=== PATIENT | female | born 1935 | race Caucasian/White ===

== ENCOUNTER 2024-08-09 06:46 | Outpatient (REF) | payer MEDICARE, SELFPAY ==
--- OUTSIDE RECORDS SUMMARY | 2024-08-09 06:52 | XMS_ITS | Encounter Summary ---
Author Organization [facility] Address [address] [place] [id number] Care Team Providers Care Slab Inspector Name Role Phone Unavailable Primary Care Provider Unavailabl e Encounter Details Date Type Department Care Team (Late st Contact Info) Description 05/17/2020 Lab Requisition [facility] Pathology & [place] [address] Outr Resulting Lab, Provider Social History Tobacco Use Types Packs/Day Years Used Date Smoking Tobacco: Never Assessed Interpersonal Safety Answer Date Record ed Physically Hurt Never 05/18/2020 Verbally Threaten Not on file 05/18/2020 Comments Unknown Sex and Gender Information Value Date Recorded Sex Assigned at Not on file Legal Sex Female 9:45 EST Gender Identity Not on file Sexual Orientation Not on file documented as of this encounter Plan of Treatment Not on file documented as of this encounter Procedures Procedure Name Priority Date/Time Associated Diagnosis Comments LYME AB Routine 05/16/2020 12:16 EST documented in this encounter Results * LYME AB (05/16/2020 12:16 EST) Lyme Ab Negative Negative 05/18/2020 10:07 EST [facility] Comment:New 3rd generation a ssay in use 09/15/2019 Blood VENOUS BLOOD / Unknown 05/16/2020 12:16 EST 05/17/2020 15:54 EST us Provider Outr Resulting Lab IMMUNOLOGY AND SEROL OGY ORDERABLES Final Result [facility] [address] [place] [address] documented in this encounter Visit Diagnoses Not on filedocumented in this encounter
--- OUTSIDE RECORDS SUMMARY | 2024-08-09 06:52 | XMS_ITS | Referral Summary ---
Author Organization [facility] Address [address] [place] [id number] Care Team Providers Care Structural Technician Name Role Phone Unavailable Primary Care Provider Unavailabl e Social History Tobacco Use Types Packs/Day Years Used Date Smoking Tobacco: Never Assessed Interpersonal Safety Answer Date Record ed Physically Hurt Never 05/18/2020 Verbally Threaten Not on file 05/18/2020 Comments Unknown Sex and Gender Information Value Date Recorded Sex Assigned at Not on file Legal Sex Female 9:45 EST Gender Identity Not on file Sexual Orientation Not on file Plan of Treatment Not on file Insurance [employer]
--- OUTSIDE RECORDS SUMMARY | 2024-08-09 06:52 | XMS_ITS | Clinical Summary ---
Author Organization [facility] [place] [address] Care Team Providers Care Recruiting Intern Name Role Phone Luma Ruiz JUICE Primary Care Provider [phone] Medications Medication Sig Dispensed Refills Start Date End Date Status amLODIPine (Norvasc) 5 mg tablet Take 1 tablet by mouth daily. 08/01/2024 Active FLUoxetine (PROzac) 40 mg capsule Take 1 capsule by mouth daily. 08/01/2024 Active hydroCHLOROthiazide 12.5 mg tablet Take 1 tablet by mouth daily. 08/01/2024 Active losartan (Cozaar) 100 mg tablet Take 1 tablet by mouth daily. 08/01/2024 Active rOPINIRole (Requip) 4 mg tablet Take 1 tablet by mouth nightly. 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 07/28/2024 Encounters Date Type Department Care Team Description 07/28/2024 6:14 PM EDT - 07/31/2024 10:32 AM EDT Hospital Encounter Heart and Vascular Unit Level 4 [place] [address] Zachariah Aparicio MD Intracranial hemorrhage (Primary Dx); High risk medications (not anticoagulants) long-term use Discharge Disposition: Assisted Facility 07/28/2024 5:43 PM EDT - 07/28/2024 6:13 PM EDT Hospital [place] [address] Zachariah Aparicio MD Discharge Disposition: Home 07/28/2024 3:45 PM EDT Ancillary Procedure Radiology Library at [facility] [place] [address] Dejuan Harvey MD 07/28/2024 2:55 PM EDT Telehealth notes only TeleHealth [facility] [place] [phone] Telehealth, Neurology 07/28/2024 Telephone Neurology at [facility] [place] [phone] Zachariah Aparicio MD from Last 3 Months Social History Tobacco Use Types Packs/Day Years Used Date Smoking Tobacco: Never Assessed [facility] Utilities Answer Date Recorded In the past 12 months has th e electric, gas, oil, or water company threatened to shut off services in your home? No 07/29/2024 Hunger Vital Sign Answer Date Recorded Within the past 12 months, y ou worried that your food would run out before you got the money to buy more. Never true 07/30/19 25 Within the past 12 months, t he food you bought just didn't last and you didn't have money to get more. Never true 07/29/2024 PRAPARE - Transportation Answer Date Re corded In the past 12 months, has l ack of transportation kept you from medical appointments or from getting medications? No 07/07 In the past 12 months, has l ack of transportation kept you from meetings, work, or from getting things needed for daily living? No 07/29/2024 Housing Stability Vital Sign Answer Jose e Recorded In the last 12 months, was t here a time when you were not able to pay the mortgage or rent on time? No 07/29/2024 In the past 12 months, how m any times have you moved where you were living? 0 07/29/2024 At any time in the past 12 m [facility], were you homeless or living in a long-term (including now)? No 07/29/2024 Sex and Gender Information Value Date Recorded Sex Assigned at Not on file Gender Identity Not on file Sexual Orientation Not on file Last Filed Vital Signs Vital Sign Reading Time Taken Comments Blood Pressure 115/68 07/31/2024 8:02 AM EDT Pulse 83 07/30/2024 4:00 PM EDT Temperature 36.6 ??C (97.9 ??F) 07/31/2024 8:02 AM ED T Respiratory Rate 18 07/31/2024 8:02 AM EDT Oxygen Saturation 93% 07/31/2024 8:02 AM EDT Inhaled Oxygen Concentration - - Weight 83 kg (182 lb 15.7 oz) 07/31/2024 4:35 AM EDT Height 149.9 cm (4' 11 ) 07/28/2024 8:00 PM EDT Body Mass Index 36.96 07/28/2024 8:00 PM EDT Plan of Treatment Health Maintenance Due Date Last Done Comments Tetanus/Diphtheria/Pertussis Vaccines (1 - Tdap) 02[birth year]28/1954 Pneumoccocal Vaccine: 50+ (1 of 1 - PCV) 1987 Zoster vaccine (1 of 2) 1987 Advance Directive 02/28/1992 Bone Density Scan 2002 RSV Vaccine (1 - 1-dose 75+ series) 02/28/2012 Covid-19 Vaccine (4 - 2023- season) 2023 08/19/2022, 02/14/2022, 08/21/2021 Influenza (Flu) vaccine (1 o f 1 - Influenza standard series) 12/07/2023 Procedures Procedure Name Priority Date/Time Associated Diagnosis Comments FERRITIN Routine 07/30/2024 4:43 PM EDT IRON AND TIBC Routine 07/30/2024 4:43 PM EDT SCAN DOC: TELEMETRY STRIPS 07/30/2024 10:18 AM EDT HEPATIC FUNCTION PANEL Routine 07/30/2024 12:55 AM EDT PHOSPHORUS Routine 07/30/2024 12:55 AM EDT MAGNESIUM Routine 07/30/2024 12:55 AM EDT BASIC METABOLIC PANEL Routine 07/30/2024 12:55 AM EDT CBC (WITH DIFF) Routine 07/30/2024 12:55 AM EDT SCAN DOC: TELEMETRY STRIPS 07/29/2024 10:04 PM EDT QUANTIFERON-TB GOLD Routine 07/29/2024 1 :25 PM EDT EKG 12-LEAD Routine 07/29/2024 11:38 AM EDT High risk medications (not anticoagulants) long-term use SCAN DOC: TELEMETRY STRIPS 07/29/2024 9:17 AM EDT ABORH RECHECK KELLY 07/29/2024 12:14 AM EDT TRIGLYCERIDE Routine 07/29/2024 12:14 AM EDT HDL/CHOL PROFILE Routine 07/29/2024 12:1 4 AM EDT LDL CHOLESTEROL, DIRECT Routine 07/29/2024 12:14 AM EDT HEMOGLOBIN A1C Routine 07/29/2024 12:14 AM EDT HEPATIC FUNCTION PANEL Routine 07/29/2024 12:14 AM EDT PHOSPHORUS Routine 07/29/2024 12:14 AM EDT MAGNESIUM Routine 07/29/2024 12:14 AM EDT BASIC METABOLIC PANEL Routine 07/29/2024 12:14 AM EDT CBC (WITH DIFF) Routine 07/29/2024 12:14 AM EDT MRI BRAIN WWO CONTRAST (GENERIC) Routine 07/28/2024 10:42 PM EDT TYPE AND SCREEN ([facility]) STAT 07/28/2024 8:36 PM EDT URINALYSIS MICROSCOPIC WITH REFLEX TO CULTURE Routine 07/28/2024 8:36 PM EDT URINALYSIS WITH REFLEX CULTURE Routine 07/28/2024 8:36 PM EDT FILM LIBRARY STORAGE ONLY CT HEAD Routine 07/28/2024 3:43 PM EDT SCAN DOC: TELEMETRY STRIPS 07/28/2024 6:48 AM EDT from Last 3 Months Results * (ABNORMAL) Iron and TIBC (07/30/2024 4:43 PM EDT) Iron 41 30 - 150 mcg/dL 07/30/2024 5:28 PM EDT [facility] TIBC 239(L) 250 - 450 mcg/dL 07/30/2024 5:28 PM EDT [facility] Iron Saturation 17(L) 20 - 50 % 5:28 PM EDT [facility] Blood VENOUS BLOOD SPECIMEN / Unknown Venipuncture / Unknown 07/30/2024 4:43 PM EDT 07/30/2024 4:52 PM EDT Hedy Ley RING BARKER OPERATOR CHEMISTRY ORDERABLE S [facility] [place] [address] * Ferritin (07/30/2024 4:43 PM EDT) Ferritin 204 11 - 328 ng/ml 07/30/2024 5:40 PM EDT [facility] Blood VENOUS BLOOD SPECIMEN / Unknown Venipuncture / Unknown 07/30/2024 4:43 PM EDT 07/30/2024 4:52 PM EDT Hedy Ley RING BARKER OPERATOR CHEMISTRY ORDERABLE S [facility] [place] [address] * Scan Doc: Telemetry Strips (07/30/2024 10:18 AM EDT) Only the most recent of4 resultswithin the time period is included. Narrative 07/30/2024 10:18 AM EDT Ordered by an unspecified provider. Scanning Provider MEDIA MGR SCAN EXT O RDR/RSLT * (ABNORMAL) CBC (with Diff) (07/30/2024 12:55 AM EDT) Only the most recent of2 resultswithin the time period is included. White Blood Cell 10.15(H) 4.00 - 9.50 x10(3)/mc L 07/30/2024 1:08 AM EDT [facility] Red Blood Cell 4.63 4.00 - 5.21 x10(6)/mc L 07/30/2024 1:08 AM EDT [facility] Hemoglobin 14.2 11.7 - 15.5 g/dL 07/30/2024 1:08 AM EDT [facility] Hematocrit 41.8 35.7 - 45.8 % 07/30/2024 1:08 AM EDT [facility] Mean Cell Volume 90.3 82.6 - 94.4 fL 07/30/2024 1:08 AM EDT [facility] Mean Cell Hemoglobin 30.7 27.1 - 32.0 pg 07/30/2024 1:08 AM EDT [facility] Mean Cell Hemoglobin Concentration 34.0 31.7 - 35.0 g/dL 07/30/2024 1:08 AM EDT [facility] Platelet 210 145 - 357 x10(3)/mc L 07/30/2024 1:08 AM EDT [facility] Mean Platelet Volume 9.7 7.6 - 12.9 fL 07/30/2024 1:08 AM EDT [facility] RDW Standard Deviation 40.4 37.0 - 46.0 fL 07/30/2024 1:08 AM [facility] RDW coefficient of variation 12.3 11.5 - 14.1 % 07/30/2024 1:08 AM [facility] NRBC% auto 0.0 % 07/30/2024 1:08 AM [facility] NRBC Absolute <0.01 <0.01 x10(3)/mc L 07/30/2024 1:08 AM [facility] Neutrophil % 72.2 % 07/30/2024 1:08 AM [facility] Neutrophil Absolute (ANC) - Automated 7.33(H) 1.70 - 6.10 x10(3)/mc L 07/30/2024 1:08 AM [facility] Lymph % 16.9 % 07/30/2024 1:08 AM [facility] Lymph Absolute 1.72 0.90 - 3.20 x10(3)/mc L 07/30/2024 1:08 AM [facility] Monocyte % 8.4 % 07/30/2024 1:08 AM [facility] Monocyte Absolute 0.85 0.30 - 0.90 x10(3)/mc L 07/30/2024 1:08 AM [facility] Eos % 1.7 % 07/30/2024 1:08 AM [facility] Eos Absolute 0.17 0.00 - 0.40 x10(3)/mc L 07/30/2024 1:08 AM [facility] Basophil % 0.4 % 07/30/2024 1:08 AM [facility] Baso Absolute 0.04 0.00 - 0.10 x10(3)/mc L 07/30/2024 1:08 AM [facility] Immature Gran % 0.4 % 1:08 AM [facility] Immature Gran Absolute 0.04 0.00 - 0.04 x10(3)/mc L 07/30/2024 1:08 AM EDT [facility] Blood VENOUS BLOOD SPECIMEN / Unknown Venipuncture / Unknown 07/30/2024 12:55 AM EDT 07/30/2024 1:02 AM EDT Zachariah Aparicio MD HEMATOLOGY ORDERAB LES Performing Organization Address City/[facility]/ZIP Co de Phone Number [facility] [place] [address] * Phosphorus (07/30/2024 12:55 AM EDT) Only the most recent of2 resultswithin the time period is included. Phosphorus 3.1 2.5 - 4.5 mg/dL 07/30/2024 1:32 AM EDT [facility] Blood VENOUS BLOOD SPECIMEN / Unknown Venipuncture / Unknown 07/30/2024 12:55 AM EDT 07/30/2024 1:02 AM EDT Zachariah Aparicio MD CHEMISTRY ORDERABL ES Performing Organization Address City/[facility]/ZIP Co de Phone Number [facility] [place] [address] * Magnesium (07/30/2024 12:55 AM EDT) Only the most recent of2 resultswithin the time period is included. Magnesium 0.77 0.69 - 1.07 mMol/L 07/30/2024 1:32 AM EDT [facility] Blood VENOUS BLOOD SPECIMEN / Unknown Venipuncture / Unknown 07/30/2024 12:55 AM EDT 07/30/2024 1:02 AM EDT Zachariah Aparicio MD CHEMISTRY ORDERABL ES Performing Organization Address City/[facility]/ZIP Co de Phone Number [facility] [place] [address] * (ABNORMAL) Hepatic Function Panel (07/30/2024 12:55 AM EDT) Only the most recent of2 resultswithin the time period is included. Albumin 3.1(L) 3.2 - 5.2 g/dL 07/30/2024 1:32 AM EDT [facility] Aspartate Aminotransferase 21 <=30 unit/L 07/30/2024 1:32 AM EDT [facility] Alanine Aminotransferase 18 0 - 30 unit/L 07/30/2024 1:32 AM EDT [facility] Alkaline Phosphatase 66 35 - 105 unit/L 07/30/2024 1:32 AM EDT [facility] Bilirubin, Total 0.5 <=1.3 mg/dL 07/30/2024 1:32 AM EDT [facility] Bilirubin, Direct 0.1 0.0 - 0.3 mg/dL 07/30/2024 1:32 AM EDT [facility] Protein, Total 6.9 6.1 - 8.0 g/dL 07/30/2024 1:32 AM EDT [facility] Blood VENOUS BLOOD SPECIMEN / Unknown Venipuncture / Unknown 07/30/2024 12:55 AM EDT 07/30/2024 1:02 AM EDT Zachariah Aparicio MD CHEMISTRY ORDERABL ES [facility] [place] [address] * (ABNORMAL) Basic Metabolic Panel (07/30/2024 12:55 AM EDT) Only the most recent of2 resultswithin the time period is included. Glucose 95 65 - 199 mg/dL 07/30/2024 1:32 AM EDT [facility] Comment:Glucose Concentratio n >=200 mg/dL plus symptoms is consistent with Diabetes Mellitus. Blood Urea Nitrogen 19(H) 8 - 18 mg/dL 07/30/2024 1:32 AM EDT [facility] Creatinine 1.04 0.70 - 1.20 mg/dL 07/30/2024 1:32 AM EDT [facility] Sodium 139 135 - 145 mMol/L 07/30/2024 1:32 AM [facility] Potassium 4.3 3.5 - 5.0 mMol/L 07/30/2024 1:32 AM [facility] Chloride 105 98 - 107 mMol/L 07/30/2024 1:32 AM [facility] Carbon Dioxide 21(L) 22 - 31 mMol/L 07/30/2024 1:32 AM [facility] Anion Gap 13 5 - 15 mMol/L 07/30/2024 1:32 AM [facility] Calcium 8.4(L) 8.5 - 10.5 mg/dL 07/30/2024 1:32 AM [facility] Est Glomerular Filtration Rate - Female 52 mL/min/1. 73 m?? 07/30/2024 1:32 AM [facility] Comment: This patient's estimated GFR was calculated using the 2020 CKD-EPI equation. The estimated GFR can vary from the measured GFR by up to 30% in the absence of rapidly changing kidney function. Assessment of the estimated GFR is not appropriate when creatinine concentrations are rapidly changing. For clinical situations in which a more precise estimate of GFR is necessary, consider alternative methods of GFR estimation such as a 24-hour urine creatinine clearance. Assignment of CKD stage 1 - 5 for patients with an eGFR near the transition point between stages may be based on clinical assessment of muscle mass and symptoms in addition to eGFR. Link: eGFR Calculator [employer] Blood VENOUS BLOOD SPECIMEN / Unknown Venipuncture / Unknown 07/30/2024 12:55 AM EDT 07/30/2024 1:02 AM EDT Zachariah Aparicio MD CHEMISTRY ORDERABL ES [facility] [place] [address] * QuantiFERON-TB Gold (07/29/2024 1:25 PM EDT) Quantiferon TB Nil 0.036 IU/mL 07/30/2024 11:41 AM EDT [facility] QFT TB Ag1-Nil -0.004 <0.350 IU/mL 07/31/19 11:41 AM EDT [facility] QFT TB Ag2-Nil 0.038 <0.350 IU/mL 07/31/19 11:41 AM EDT [facility] Quantiferon TB Mitogen-Nil 9.964 IU/mL 07/30/2024 11:41 AM EDT [facility] Quantiferon Tb Interp Negative Negative 07/30/2024 11:41 AM EDT [facility] Blood VENOUS BLOOD SPECIMEN / Unknown Venipuncture / Unknown 07/29/2024 1:25 PM EDT 07/29/2024 1:29 PM EDT Narrative [facility] - 07/30/2024 11:41 AM EDT No interferon-gamma response to M. tuberculosis antigens was detected. A single negative result does not exclude infection with M. tuberculosis. ??In patients at high risk for M. tuberculosis infection, a second test should be considered in accordance with the 2017 ATS/IDSA/CDC Clinical Practice Guidelines for Diagnosis of Tuberculosis in Adults and Children. Hedy Ley RING BARKER OPERATOR CHEMISTRY ORDERABLE S Performing Organization Address City/State/[facility] Co de Phone Number [facility] [place] [address] * EKG 12 Lead (07/29/2024 11:38 AM EDT) Ventricular rate 85 BPM MUSE SYSTEM Atrial Rate 75 BPM MUSE SYSTEM P-R Interval 160 ms MUSE SYSTEM QRS Duration 66 ms MUSE SYSTEM Q-T Interval 412 ms MUSE SYSTEM QTC Calculated (Bezet) 490 ms MUSE SYSTEM Calculated R Calvin 0 degrees MUSE SYSTEM Calculated T Calvin 14 degrees MUSE SYSTEM INTERPRETATION Sinus rhythm with Premature atrial complexes Moderate voltage criteria for LVH, may be normal variant Prolonged QT Abnormal ECG No previous ECGs available Confirmed by MD Vicente, Nelson ([id number]) on 07/29/2024 5:25:16 PM MUSE SYSTEM 07/29/2024 11:3 8 AM EDT 07/29/2024 5:25 PM EDT Hedy Ley RING BARKER OPERATOR ECG ORDERABLES MUSE SYSTEM * ABORH RECHECK (07/29/2024 12:14 AM EDT) ABORH Recheck AB NEGATIVE 07/29/2024 1:06 AM EDT [facility] Blood VENOUS BLOOD SPECIMEN / Unknown Venipuncture / Unknown 07/29/2024 12:14 AM EDT 07/29/2024 12:22 AM EDT Zachariah Aparicio MD BLOOD BANK LAB ORD ERABLES Performing Organization Address City/[facility] Co de Phone Number [facility] [place] [address] * Triglyceride (07/29/2024 12:14 AM EDT) Pathologist [facility] Triglyceride 68 mg/dL 07/29/2024 1:05 AM EDT [facility] Comment: Normal: <150 mg/dL Borderline High: 150-199 mg/dL High: 200-499 mg/dL Very High: > or =500 mg/dL Blood VENOUS BLOOD SPECIMEN / Unknown Venipuncture / Unknown 07/29/2024 12:14 AM EDT 07/29/2024 12:35 AM EDT Zachariah Aparicio MD CHEMISTRY ORDERABL ES Performing Organization Address City/[facility]/ZIP Co de Phone Number [facility] [place] [address] * LDL Cholesterol, Direct (07/29/2024 12:14 AM EDT) LDL Cholesterol, Direct 85 mg/dL 07/29/2024 1:05 AM EDT [facility] Comment: Desirable: <100 mg/dL Above Desirable: 100-129 mg/dL Borderline High: 130-159 mg/dL High: 160-189 mg/dL Very High: > or =190 mg/dL If not reaching LDL goals on maximally tolerated statin, consider ezetimibe and/or a PCSK9 inhibitor: ? * Target for primary prevention: LDL<100 ? * Target for those with ASCVD or diabetes and 10-year risk?20%: LDL<70 ? * Target for those with very high risk ASCVD: LDL<55 (Very high risk being the presence of 2 or more of: recent acute coronary syndrome, past ?myocardial infarction, ischemic stroke, symptomatic peripheral artery disease). Blood VENOUS BLOOD SPECIMEN / Unknown Venipuncture / Unknown 07/29/2024 12:14 AM EDT 07/29/2024 12:35 AM EDT Zachariah Aparicio MD CHEMISTRY ORDERABL ES [facility] [place] [address] * HDL/Cholesterol Profile (07/29/2024 12:14 AM EDT) [facility] Signature Cholesterol, Total 144 mg/dL 07/29/2024 1:05 AM EDT [facility] Comment: Desirable: < 200 mg/dL Borderline High: 200 - 239 mg/dL High: > or = 240 mg/dL HDL Cholesterol 51 mg/dL 1:05 AM EDT [facility] Comment:Female: High Risk: < 50 mg/dL Non-HDL Cholesterol 93 mg/dL 07/29/2024 1:05 AM EDT [facility] Comment: Desirable: <130 mg/dL Above Desirable: 130-159 mg/dL Borderline High: 160-189 mg/dL High: 190-219 mg/dL Very High: > or = 220 mg/dL Blood VENOUS BLOOD SPECIMEN / Unknown Venipuncture / Unknown 07/29/2024 12:14 AM EDT 07/29/2024 12:35 AM EDT Narrative [facility] - 07/29/2024 1:05 AM EDT It is important to review the results of your lipid panel with your health care provider. You can compare your lipid results to the ranges below and whether they are in the desirable range. These ranges are only meant to be used for people without known cardiac disease, history of stroke, or peripheral vascular disease (blockages in the leg arteries or diabetes). If you have one of these conditions, your desirable LDL-C (bad cholesterol) will likely be even lower. ?? ACC/AHA Guidelines (most recently Aurea et al. [facility] 01/08/22): * For individuals with atherosclerotic cardiovascular disease (ASCVD) or LDL >=190 mg/dL, use a high-intensity statin(40-80 mg atorvastatin or 20-40 mg rosuvastatin with goal >=50% LDL reduction) * For individuals with diabetes, age 40-75 without ASCVD, moderate-intensity statin (goal 30-49% LDL reduction); consider high intensity statin for those with increased risk. * For adults without diabetes or ASCVD, aged 40-75 with LDL 70-189 mg/dL, estimate 10 year ASCVD risk with smartphrase ??.ASCVDRISK ??or Dynamed Decisions. If 10 year risk is 7.5%-19.9% (intermediate risk), consider moderate intensity statin based on risk enhancers and patient preference. Consider coronary artery calcium test (CT)if there is concern regarding the benefit of a statin. If ten year risk is >=20%, initiate high-intensity statin. * Evaluate for secondary causes of Triglycerides >500 mg/dL or LDL >190 mg/dL. * Lifestyle modification is a critical component of ASCVD risk reduction. * If not reaching LDL goals on maximally tolerated statin, consider ezetimibe and/or a PCSK9 inhibitor: ?* Target for primary prevention: LDL<100 ?* Target for those with ASCVD or diabetes and 10-year risk >=20%: LDL<70 ?* Target for those with very high risk ASCVD: LDL<55 (Very high risk being the presence of 2 or more of: recent acute coronary syndrome, past ? myocardial infarction, ischemic stroke, symptomatic peripheral artery disease) Zachariah Aparicio MD CHEMISTRY ORDERABL ES Performing Organization Address [facility]/ZIP Co de Phone Number [facility] [place] [address] * (ABNORMAL) Hemoglobin A1c (07/29/2024 12:14 AM EDT) Hemoglobin A1c 5.7(H) 4.3 - 5.6 % 07/29/2024 1:38 AM EDT [facility] Comment: Per ADA guidelines, without clear symptoms of hyperglycemia or a random plasma glucose >199 mg/dL, a single abnormal A1c measurement cannot be used to diagnose diabetes mellitus. The diagnosis must be confirmed by either 1) a concurrent abnormal fasting plasma glucose or impaired response to oral glucose tolerance testing, or 2) an additional abnormal A1c, impaired fasting plasma glucose, or impaired response to oral glucose tolerance testing on a different day. A1c results obtained on patients with altered red blood cell turnover may not be customer engagement representative of glycemic control. Reference Interval: 4.3 - 5.6% 5.7 - 6.4%: Consistent with prediabetes >=6.5%: Consistent with diagnosis of diabetes mellitus Estimated Average Glucose 07/29/2024 1:38 AM EDT [facility] Comment:Estimated Average Gl ucose not appropriate for patients over 70 years of age. Blood VENOUS BLOOD SPECIMEN / Unknown Venipuncture / Unknown 07/29/2024 12:14 AM EDT 07/29/2024 12:35 AM EDT Narrative [facility] - 07/29/2024 1:38 AM EDT Estimated average glucose (eAG) is calculated from the equation described in: Tyler DM, Anya J, Radha R, et al. ??Translating the A1C assay into estimated average glucose values. ??Diabetes Care 2008:31(8):4713-2413. Additional resources are available on the ADA website (diabetes.org). Zachariah Aparicio MD CHEMISTRY ORDERABL ES Performing Organization Address City/[facility]/ZIP Co de Phone Number [facility] [place] [address] * MRI Brain wwo Contrast (Generic) (07/28/2024 10:42 PM EDT) WORKSTATION ID [id number] RAD Anatomical Region Laterality Modality Head Magnetic Resonan ce Impressions 07/29/2024 8:52 AM EDT Stable right thalamic intraparenchymal hematoma. Scattered foci of enhancement in the region of hemorrhage may reflect subacute hematoma evolution, however, underlying lesion is not excluded. Recommend follow-up exam in 1 to 2 months for further evaluation. I have personally reviewed the image(s) and the resident's interpretation and agree with the findings, Natasha Guadarrama at 07/29/2024 8:52 AM Thank you for letting us participate in the care of this patient. ??If you are a health care provider and have any questions regarding this report, please contact the number below. ??For patients who have questions please contact the health manager care that requested your imaging first. ? Electronically signed by: NILAY Massey On License Of [facility] ([phone]), at 07/29/2024 8:52 AM Narrative 07/29/2024 8:52 AM EDT EXAMINATION: MRI BRAIN WWO CONTRAST (GENERIC) CLINICAL HISTORY: IPH TECHNIQUE: MRI of the brain was performed before and after the intravenous administration of 17cc Dotarem. COMPARISON: CT angiogram 07/28/2024 FINDINGS: Right thalamic 2.4 x 2.2 cm lesion with susceptibility related blooming and internal fluid-hematocrit level, stable from prior CT allowing for differences in modality. Lesion heterogeneously restricts diffusion and has several small foci of enhancement. No focal nodularity. Minimal local mass effect. Several additional left frontal and bilateral parietal microhemorrhages. Patchy areas of nonenhancing white matter signal alteration, most commonly sequela of chronic small vessel ischemia. Mild ventricular and sulcal prominence . Mild generalized atrophy.. Prior bilateral lens replacement. No suspicious marrow lesions. Paranasal sinuses and mastoid air cells are well aerated. Procedure Note Natasha Guadarrama MD - 07/29/2024 EXAMINATION: MRI BRAIN WWO CONTRAST (GENERIC) CLINICAL HISTORY: IPH TECHNIQUE: MRI of the brain was performed before and after the intravenousadministration of 17cc Dotarem. COMPARISON: CT angiogram 07/28/2024 FINDINGS: Right thalamic 2.4 x 2.2 cm lesion with susceptibility related bloomingand internal fluid-hematocrit level, stable from prior CT allowing fordifferences in modality. Lesion heterogeneously restricts diffusion and has severalsmall foci of enhancement. No focal nodularity. Minimal local mass effect. Several additional left frontal and bilateral parietal microhemorrhages.Patchy areas of nonenhancing white matter signal alteration, most commonlysequela of chronic small vessel ischemia. Mild ventricular and sulcal prominence . Mild generalized atrophy.. Prior bilateral lens replacement. No suspicious marrow lesions.Paranasal sinuses and mastoid air cells are well aerated. IMPRESSION Stable right thalamic intraparenchymal hematoma. Scattered foci ofenhancement in the region of hemorrhage may reflect subacute hematoma evolution,however, underlying lesion is not excluded. Recommend follow-up exam in 1 to 2months for further evaluation. I have personally reviewed the image(s) and the resident's interpretationand agree with the findings, Natasha Guadarrama at 07/29/2024 8:52 AM Thank you for letting us participate in the care of this patient. If youare a health care provider and have any questions regarding this report,please contact the number below. For patients who have questions please contactthe health manager care that requested your imaging first. Electronically signed by: Natasha Guadarrama [facility]([phone]), at 07/29/2024 8:52 AM Zachariah Aparicio MD IM MRI ORDERABLES * (ABNORMAL) Urinalysis Microscopic with Reflex to Culture (07/28/2024 8:36 PM EDT) Bacteria, Urine Many(A) None /HPF 9:54 PM EDT [facility] RBC, Urine 3 0 - 4 /HPF 07/28/2024 9:54 PM EDT [facility] WBC, Urine 5 0 - 5 /HPF 07/28/2024 9:54 PM EDT [facility] Squamous Epithelial Cells, Urine 3 0 - 5 /HPF 07/28/2024 9:54 PM EDT [facility] Hyaline Casts, Urine 1 0 - 2 /LPF 07/28/2024 9:54 PM EDT [facility] CULTURE ADDED? 07/28/2024 9:54 PM EDT [facility] Urine URINE SPECIMEN OBTAINED BY CLEAN CATCH PROCEDURE / Unknown Non Blood Collection / Unknown 07/28/2024 8:36 PM EDT 07/28/2024 8:43 PM EDT Zachariah Aparicio MD URINE ORDERABLES Performing Organization Address City/State/[facility] Co de Phone Number [facility] [place] [address] * (ABNORMAL) Urinalysis with reflex Culture (07/28/2024 8:36 PM EDT) Glucose, Urine Dipstick Negative Negative 07/28/2024 9:54 PM EDT [facility] Protein, Urine Dipstick Trace(A) Negative 07/28/2024 9:54 PM EDT [facility] Bilirubin, Urine Dipstick Negative Negative 07/28/2024 9:54 PM EDT [facility] Comment:Clinical correlation required for positive Urine Bilirubin results as false positive may occur with some drugs and drug related products. If a false positive is suspected a serum total bilirubin should be considered if clinically indicated. Urobilinogen, Urine Dipstick Normal Normal, 0.2 mg/dL, 1.0 mg/dL 07/28/2024 9:54 PM EDT [facility] pH, Urine (dipstick) 7.5 5.0 - 8.0 07/28/2024 9:54 PM EDT [facility] Blood, Urine Dipstick Negative Negative 07/28/2024 9:54 PM EDT [facility] Ketone, Urine Dipstick Negative Negative 07/28/2024 9:54 PM EDT [facility] Nitrite, Urine Dipstick Negative Negative 07/28/2024 9:54 PM EDT [facility] Leukocytes, Urine Dipstick Negative Negative 07/28/2024 9:54 PM EDT [facility] Specific [employer] Urine Automated >=1.030(H) 1.005 - 1.030 07/28/2024 9:54 PM EDT [facility] Appearance, Urine Dipstick Turbid(A) Clear 07/28/2024 9:54 PM EDT [facility] Color, Urine Dipstick Yellow Yellow, Dark Yellow 07/28/2024 9:54 PM EDT [facility] CULTURE ADDED? 07/28/2024 9:54 PM EDT [facility] Urine URINE SPECIMEN OBTAINED BY CLEAN CATCH PROCEDURE / Unknown Non Blood Collection / Unknown 07/28/2024 8:36 PM EDT 07/28/2024 8:43 PM EDT Zachariah Aparicio MD URINE ORDERABLES Performing Organization Address City/State/[facility] Co de Phone Number [facility] [place] [address] * Type and screen ([facility]/GERONIMO/CORRY) (07/28/2024 8:36 PM EDT) ABORH Type AB NEGATIVE 07/28/2024 9:35 PM EDT [facility] PATIENT HISTORY Not Found 07/28/2024 9:35 PM EDT [facility] Expires at [id number] on: 07/31/2024 07/28/2024 9:35 PM EDT [facility] ANTIBODY SCREEN AUTOMATED Negative 07/28/2024 9:35 PM EDT [facility] T&S only valid at [facility] 07/28/2024 9:35 PM EDT [facility] Blood VENOUS BLOOD SPECIMEN / Unknown Venipuncture / Unknown 07/28/2024 8:36 PM EDT 07/28/2024 8:44 PM EDT Narrative [facility] - 07/28/2024 9:35 PM EDT This Type and Screen result is only valid at the [facility] Zachariah Aparicio MD B[facility] BANK LAB ORD ERABLES [facility] [place] [address] * Film Library- Storage Only CT Head (07/28/2024 3:43 PM EDT) Narrative [facility] - 07/28/2024 3:43 PM EDT This exam is auto-finalizing. It's purpose is for storage only. Dejuan Harvey MD IM FILM LIBRARY ORD ERABLES Performing Organization Address City/[facility]/ZIP Co de Phone Number [place], [place] from Last 3 Months Advance Directives * Do NOT Attempt CPR - Inpatient (Latest Code Status on File) Date Activated Date Inactivated Comments 07/28/2024 7:37 PM 07/31/2024 12:37 PM Question Answer Comments Code Status decision made by: Patient Content of discussion: code Independent of Code Status d ecision, are there any PRE Arrest limitations (Intubation, Pressors, Cardioversion / Pacing, etc)? Yes PRE Arrest Intubation Permitted? No * Attempt Cardiopulmonary Resuscitation - Inpatient Date Activated Date Inactivated Comments 07/28/2024 6:42 PM 07/28/2024 7:37 PM Question Answer Comments Code Status decision made by: Patient Care Teams Recruiting Intern Relationship Specialty Start Date End Date Luma Ruiz APRN [address] [place] [address] PCP - General Family Medicine 07/27/24
--- OUTSIDE RECORDS SUMMARY | 2024-08-09 06:52 | XMS_ITS | Clinical Summary ---
Author Organization [facility] Address [address] [place] [address] Care Team Providers Care Binitrotoluene Operator Name Role Phone Unavailable Primary Care Provider [...] Orientation Not on file Plan of Treatment Health Maintenance Due Date Last Done Comments Fall Risk Screening 2002 RSV Immunization ( o r 60+ Years) (1 - 1-dose 75+ series) 02/28/2012 COVID-19 Vaccine ( season) 2023 Insurance [employer] MED[employer]ARE [place]
== END 2024-08-09 06:47 | disposition home or self-care (01) ==
LOC: HO.MMNH2L 06:46
PROVIDERS: Visit Provider Student in an Organized Health Care Education/Training Program
DX: Z13.89 Encounter for screening for other disorder (principal)